=== PATIENT | male | born 1950 | race Two or more races ===

== ENCOUNTER 2017-07-17 08:48 | Day surgery (SDC) | payer MEDICARE, OTHER | END 2017-07-17 11:00 | disposition home or self-care (01) | LOC: DS 08:48 | PROVIDERS: ATTEND Surgery | DX: K63.89 Other specified diseases of intestine (principal); K64.4 Residual hemorrhoidal skin tags; K64.3 Fourth degree hemorrhoids; I10 Essential (primary) hypertension; E78.5 Hyperlipidemia, unspecified; K21.9 Gastro-esophageal reflux disease without esophagitis; I25.2 Old myocardial infarction; E66.01 Morbid (severe) obesity due to excess calories; Z87.891 Personal history of nicotine dependence; Z95.5 Presence of coronary angioplasty implant and graft; K63.4 Enteroptosis | CPT/HCPCS: 45380; 88305 ×2; J2704; J3490; J7120; Z7610 ==